=== PATIENT | female | born 1975 | race Caucasian/White ===

== ENCOUNTER 2019-06-11 09:35 | Emergency (ER) | payer OTHER ==
[2019-06-11 10:15] LABS: Bacteria/HPF 4+ HPF (None Seen); Bilirubin Negative (Negative); Blood, Urine Trace (Negative); Clarity Turbid (Clear); Glucose, Urine (Dipstick) Normal (Negative); Leukocyte 500 Leu/uL (Negative); Nitrite Negative (Negative); Protein, Urine (Dipstick) 10 mg/dL (Neg-Trace); Urobilinogen Normal mg/dL (Less than 2); WBC/HPF Greater than 50 HPF (0-3)
== END 2019-06-11 11:59 | disposition home or self-care (01) ==
LOC: ERS 09:35
DX: N39.0 Urinary tract infection, site not specified (principal)
CPT/HCPCS: 81003; 81015; 87077; 87086; 87186; 99283

== ENCOUNTER 2023-01-27 18:17 | Emergency (ER) | payer BC ==
[2023-01-27] MEDS ORDERED: Cyclobenzaprine 10 MG TAB ONE (18:53)
[2023-01-27] MEDS ORDERED: Ketorolac Tromethamine 30 MG/ML VIAL ONE (19:08)
[2023-01-27 19:54] LABS: Troponin I Less than 0.010 ng/mL (< 0.028)
== END 2023-01-27 20:01 | disposition home or self-care (01) ==
LOC: ERS 18:17
DX: M62.838 Other muscle spasm (principal)
CPT/HCPCS: 36415; 84484; 93005; 96372; J1885

== ENCOUNTER 2024-04-22 13:23 | Emergency (ER) | payer BC, SELFPAY ==
[2024-04-22] MEDS ORDERED: traMADol HCl 50 MG TAB ONE ×2 (15:10→15:12)
== END 2024-04-22 15:49 | disposition home or self-care (01) ==
LOC: ERS 13:23
DX: S52.572A Other intraarticular fracture of lower end of left radius, initial encounter for closed fracture (principal); W01.0XXA Fall on same level from slipping, tripping and stumbling without subsequent striking against object, initial encounter; Y93.41 Activity, dancing
CPT/HCPCS: 29125; 99283

== ENCOUNTER 2024-05-22 10:07 | Day surgery (SDC) | payer OTHER ==
[2024-05-21 14:39] VITALS: BMI 45.1
[2024-05-22] MEDS ORDERED: Midazolam HCl 2 mg/2 ml Vial ONE (12:00)
[2024-05-22] MEDS ORDERED: fentaNYL 50 mcg/mL 1 mL Vial ONE ×4 (12:00→15:09)
[2024-05-22] MEDS ORDERED: Ropivacaine 0.5% HCl/PF (150 MG/30 ML VIAL) ONE (12:01)
[2024-05-22] MEDS ORDERED: CEFAZOLIN 2 GM VIAL ONE (12:25)
[2024-05-22] MEDS ORDERED: PROPOFOL 20 ML ONE (12:37)
[2024-05-22] MEDS ORDERED: Ropivacaine 0.2% 550 ML 550 ML NERVE BLCK SCH (12:45)
[2024-05-22] MEDS ORDERED: Promethazine HCl 25 MG/ML VIAL IM PRN (12:45)
[2024-05-22] MEDS ORDERED: HYDROcodone/Acetaminophen 10/325 mg Tablet PO PRN ×2 (12:45)
[2024-05-22] MEDS ORDERED: Zolpidem Tartrate 5 MG TAB PO PRN (12:45)
[2024-05-22] MEDS ORDERED: fentaNYL 50 mcg/mL 1 mL Vial SLOW IVP PRN (12:45)
[2024-05-22] MEDS ORDERED: Ondansetron PF 4 MG/2 ML Vial IVP PRN (12:45)
[2024-05-22] MEDS ORDERED: traMADol HCl 50 MG TAB PO PRN ×2 (12:45)
[2024-05-22] MEDS ORDERED: Lidocaine 1% PF 5 ML VIAL ONE (12:50)
[2024-05-22] MEDS ORDERED: Ondansetron PF 4 MG/2 ML Vial ONE (13:37)
[2024-05-22] MEDS ORDERED: HYDROmorphone 0.5 MG/0.5 ML SYRINGE ONE (14:46)
== END 2024-05-22 16:42 | disposition home or self-care (01) ==
LOC: SDC 10:07
PROVIDERS: ATTEND Orthopaedic Surgery
PROC: 0PSJ04Z Reposition Left Radius with Internal Fixation Device, Open Approach (ICD-10-PCS; principal; 2024-05-22)
PROC: 3E0T3BZ Introduction of Anesthetic Agent into Peripheral Nerves and Plexi, Percutaneous Approach (ICD-10-PCS; principal; 2024-05-22)
DX: S52.572A Other intraarticular fracture of lower end of left radius, initial encounter for closed fracture (principal); S52.612A Displaced fracture of left ulna styloid process, initial encounter for closed fracture; W18.30XA Fall on same level, unspecified, initial encounter; Z79.899 Other long term (current) drug therapy
CPT/HCPCS: A4306; C1713; J1171; J2250; J2405; J2704; J2795; J3010